=== PATIENT | male | born 1970 | race Asian ===

== ENCOUNTER → 2018-06-26 | Outpatient (REF) ==
--- NOTE | 2018-06-26 15:53 | RADIOLOGY IMAGING REPORT ---
FACILITY: [facility] - [place], [place] PATIENT NAME: Surjit Piper : 1970 MR: [id number] V: [id number] EXAM DATE: ORDERING PHYSICIAN: REMI CHAUDHARY TECHNOLOGIST: Location: [facility] - [place] Patient: Surjit Piper : 1970 Visit/Account:[id number] Date of Sevice: 06/26/2018 CHEST PA AND LAT INDICATION: Unexplained inflammation COMPARISON: None available FINDINGS: Heart size within normal limits. There is no focal infiltrate or lobar consolidation. There is no pneumothorax or pleural effusion. IMPRESSION: 1. No acute cardiopulmonary process. Report Dictated By: Garcia Galeana at 06/26/2018 3:46 PM Report E-Signed By: Garcia Galeana at 06/26/2018 3:50 PM WSN:[id number]
== END ==
LOC: RAD 14:38
PROVIDERS: ATTEND Nurse Practitioner
DX: H10.9 Unspecified conjunctivitis (principal)
CPT/HCPCS: 71046

== ENCOUNTER → 2018-11-07 | Outpatient (REF) ==
--- NOTE | 2018-11-07 11:36 | RADIOLOGY IMAGING REPORT ---
FACILITY: [facility] PATIENT NAME: Surjit Piper : 1970 MR: [id number] V: [id number] EXAM DATE: ORDERING PHYSICIAN: REMI CHAUDHARY TECHNOLOGIST: Location: [facility] Patient: Surjit Piper : 1970 Visit/Account:[id number] Date of Sevice: 11/07/2018 KIDNEYS EXAMINATION: Renal ultrasound. History: Chronic interstitial nephritis COMPARISON STUDIES: FINDINGS: Kidneys: Right kidney- 9.2 x 4.6 x 4.8 cm Left kidney- 9.6 x 4.4 x 4.7 cm Uniform and symmetric blood flow in each kidney by Doppler ultrasound. Hydronephrosis: none There is a lobular contour to both kidneys. Multiple small cysts are identified in the right kidney largest measuring 8 mm in diameter to small cysts identified in the left kidney the largest measuring 7 mm in diameter Bladder: Prevoid volume 74 mL. Post void residual 2 mL.. Bilateral ureteral jets are present Abdominal aorta and IVC: Aorta and IVC are patent by Doppler ultrasound. IMPRESSION: Small cysts identified in both kidneys Lobular contour to both kidneys Report Dictated By: Jes Christensen MD at 11/07/2018 11:30 AM Report E-Signed By: Jes Christensen MD at 11/07/2018 11:32 AM WSN:[id number]
== END ==
LOC: US 01:16
PROVIDERS: ATTEND Nurse Practitioner
DX: N28.1 Cyst of kidney, acquired (principal)
CPT/HCPCS: 76705